=== PATIENT | female | born 1980 | race Caucasian/White ===

== ENCOUNTER → 2023-03-07 13:27 | Outpatient (BNVA) | payer OTHER, SELFPAY | PROVIDERS: Visit Provider Physician Assistant | DX: S56.911A Strain of unspecified muscles, fascia and tendons at forearm level, right arm, initial encounter (principal); S63.8X1A Sprain of other part of right wrist and hand, initial encounter; X50.3XXA Overexertion from repetitive movements, initial encounter | CPT/HCPCS: 73110; 73130; 99202 ==

== ENCOUNTER 2023-04-05 14:00 | Outpatient (RCR) | payer OTHER, BC, SELFPAY ==
--- NOTE | 2023-03-14 11:30 | MHC.OT.EP ---
[address] [phone] Occupational Therapy Plan of Care Patient Name: Hue Romo Date of Evaluation: 03/14/23 Diagnosis: R SPRAIN HAND AND STRAIN FOREARM Pain Location: R VOLAR IF R DORSAL FOREARM 6/10 AT REST 8-10/10 WITH USE Pain Score: 6-10/10 Pain Scale Used: Numeric (0 - 10) Aggravating Factors: ROTATIONAL MOVEMENTS OF FOREARM, WB, GRIPPING Alleviating Factors: USING HEAT > ICE Assessment: MS ROMO IS ABOUT TWO WEEKS S/P R FOREARM STRAIN AND R INDEX FINGER SPRAIN. INJURY OCCURED AFTER A STUDENT PULLED ON HER DOMINANT RUE. SHE C/O PAIN IN HER R DORSAL FOREARM AND R VOLAR MCP OF HER INDEX FINGER AT REST AND WITH FUNCTIONAL USE. A 66% LIMITATION IS REPORTED PER THE QUICK DASH ASSESSMENT. ONGOING SKILLED OT IS WARRANTED TO ADDRESS ROM, STRENGTH, PAIN, ADLs, IADLs AND IMPROVE QOL. Frequency and Duration: The patient will be seen 2X/WEEK FOR 4 WEEKS Short Term Goals: IND HEP IND JT PROTECTION AND ACTIVITY MODIFICATION STRATEGIES IND USE OF HEAT/ ICE REPORT MOSTLY PAINFREE WITH LIGHT ADLs Hr Assistant Goals: QUICK DASH <40% R GRASP >45 POUNDS REPORT <MILD DIFFICULTIES WITH SLEEPING REPORT <2/10 PAIN WITH IADLs Treatment Plan: Therapeutic Exercise Therapeutic Activity Home Exercise Program Splinting Neuro Re-ed Patient Education Desensitization/Sensory Re-ed Edema Control ADL Training Ultrasound NMES Iontophoresis Paraffin Fluidotherapy MHP Cold Packs Joint Mobilization Soft Tissue Mobilization Kinesiotaping Other (see comments) Electronically Signed By: ZANDER LIVE OTR/L Please Sign and return to therapist. Thank you once again for your referral.
--- NOTE | 2023-04-12 14:29 | MHC.OT.DC ---
[address] [phone] F: [phone] Occupational Therapy Discharge Note Patient Name: Hue Romo Provider: Sheron Smith Diagnosis: R SPRAIN HAND AND STRAIN FOREARM Date of Evaluation: 03/14/23 Date of Discharge: 04/12/23 Treatments to Date: 6 Cancellations to Date: 0 No Shows to Date: 3 Discharge Status: Improved Function Independent with HEP Visit Non-compliance Discharge Summary: MS ROMO HAS PROGRESSED WELL WITH HER OT RX SESSIONS. 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 SHE IS IND WITH HER HEP AND READY FOR A TRANSITION TO A HOME BASED HOME EXERCISE PROGRAM. D/C OT SERVICES. Electronically Signed By: ZANDER LIVE OTR/Rodriguez Reviewed/agree with student documentation: N/A Therapist: Please Sign and return to therapist, thank you for your referral.
== END 2023-04-12 14:25 | disposition home or self-care (01) ==
LOC: HO.OT 14:00
PROVIDERS: PCP Physician Assistant Medical; Visit Provider Physician Assistant Medical
DX: S63.92XD Sprain of unspecified part of left wrist and hand, subsequent encounter (principal)
CPT/HCPCS: 97033; 97035; 97110; 97140; 97166

== ENCOUNTER 2023-04-23 15:25 | Outpatient (REF) | payer OTHER, BC, SELFPAY | END 2023-04-23 15:26 | disposition home or self-care (01) | LOC: HO.HOSX 15:25 | PROVIDERS: Visit Provider Orthopaedic Surgery | DX: Z13.89 Encounter for screening for other disorder (principal) ==

== ENCOUNTER 2023-05-28 08:49 | Outpatient (AMB) | payer OTHER, BC, SELFPAY ==
--- NOTE | 2023-05-28 09:03 | MHC.OFFVIS ---
Intake Vital Signs 05/28/23 09:05 Height 5 ft 1 in Weight 105 lb BMI 19.8 Intake Visit Reasons: W/C N/P for multiple traction injury to rt hand Intake Note: Hue Castro 43 yr old who is right hand dominant female presents today for a new patient visit for her W/C injury for multiple traction injury to rt hand from DOI 02/15/23. 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 Pain in mainly in her index MCP and thumb dorsum and volar aspect of hand. Seen with work connection where xrays were taken and was told she has calcification in hand. Currently complaining of soreness and pain in index finger. Its better today especially after doing O.T. Allergies latex Allergy (Severe, Verified 05/28/23 09:06) rash HPI W/C N/P for multiple traction injury to rt hand HPI Details Hue is a 43 year old right hand dominant woman who presents for right hand pain, DOI: 02/15/23. This is a workers comp injury. She works in a school with a special needs student, and says the student dropped to the floor multiple times while holding her hand, as well as grabbed onto her arm,causing her to sprain her hand & wrist. She was seen by work connections who ordered OT. She denies being given a brace by W/C. She has been attending OT, with has been somewhat helpful. She has been doing exercises at home and says her massages her hand & wrist throughout the week, which she finds helpful. She reports pain primarily in the A1 damon area of her right thumb and index fingers, & radial aspect of her wrist, which she says has all improved since her injury. She denies any locking or catching She has been working since her injury. She says she is an avid mountain biker and wants to make sure everything is good before she begins riding in the next few weeks. She is unable to tolerate NSAIDs as she has IBS. [facility] Medical History (Updated 05/28/23 @ 09:25 by Eusebio Geiger) delivery delivered Social History (Updated 05/28/23 @ 09:08 by EBEN Andrade) Patient Tobacco Use Status: Never used Tobacco Current occupational status: employed Current occupation: rt hand/ special integrated circuit fabricator Review of Systems Const All systems reviewed & are unremarkable except as noted in HPI and below Physical Exam Vital Signs: BMI result Body Mass Index 19.8 Const General: cooperative, healthy appearing and no acute distress Orientation/consciousness: patient oriented x3 HEENT Head: Yes normocephalic and Yes atraumatic Eyes EOM: EOMs intact bilaterally Resp Effort & Inspection: normal respiratory effort and able to speak in complete sentences Cardio Jugular venous distension: no JVD Skin General skin exam: turgor normal Rashes: no rashes Neuro General: patient oriented x3 Extrem Other: Evaluation of Right Upper Extremity: The patient is alert, oriented, and in no acute distress Neuro: Median, Ulnar, Radial nerves motor and sensory intact and sensation is normal to the tips of all digits Vascular: Cap refill brisk ROM: She can make a fist and extend all her digits Full wrist ROM Skin: No lacerations or abrasions. General: No Ecchymosis. No Erythema or evidence of infection. Mildly positive Tawana test on the right Negative Tawana test on the left Mild tenderness over the a1 damon of the thumb & index finger, which has been improving No locking or catching No tenderness over the 1st dorsal compartment Main problem following injury was pain going up the radial aspect of her wrist & forearm, which has resolved at this time Radiographs: 3 views of the right hand were taken and viewed by me today in clinic. They show no fractures, dislocations, or arthritic changes. Psych Appearance: grossly normal Affect: normal affect Attitude: cooperative Assessment & Plan Assessment & Plan (1) De Quervain's tenosynovitis, right: Code(s): M65.4 - Radial styloid tenosynovitis [de Quervain] Plan Assessment & Plan: 1. Right De Quervains Mildly positive Tawana test From a work injury, DOI: 02/15/23 This is a workers comp visit 2. A1 damon tenderness in the right index finger and right thumb From a work injury, DOI: 02/15/23 This is a workers comp visit I educated her about de Quervain tenosynovitis and trigger fingers. Both of these conditions appear to be resolving well, and now have only minimal symptoms. She is doing much better since her injury, and has completed a course of OT hand therapy I discussed activity modification, she should limit or avoid activities or positions which cause her pain, such as handshake position. She is able to engage in all other daily activities as normal. I recommend she begin with a short bike ride and see how she feels afterwards before committing to a longer ride. She will follow up prn Scribed for Vania Hines MD by Eusebio Geiger, medical records secretary, on 05/28/23 at 9:25 AM, EST. Orders: Orders XR hand RT min 3V 04/23/23 M79.641 - Pain in right hand XR hand RT min 3V Today M79.641 - Pain in right hand Medications: Discontinued cyclobenzaprine Discontinued Reason: Patient no longer taking 5 mg PO BEDTIME PRN 20 tabs 0RF muscle spasm Coding Level of Care Code New Pt Level 3 (13738) Diagnoses De Quervain's tenosynovitis, right M65.4
[2023-05-28 09:05] VITALS: BMI 19.8
== END 2023-05-28 09:27 | disposition home or self-care (01) ==
PROVIDERS: PCP Physician Assistant Medical; Visit Provider Orthopaedic Surgery
DX: M65.4 Radial styloid tenosynovitis [de Quervain] (principal)
CPT/HCPCS: 99203

== ENCOUNTER 2023-05-28 08:50 | Outpatient (REF) | payer OTHER, BC, SELFPAY ==
--- NOTE | ~2023-05-28 | XR_ITS ---
EXAMINATION: XR HAND, RIGHT CLINICAL INFORMATION: Pain in right hand. Patient states painful second digit into wrist. History of wrist pain. COMPARISON: 03/07/2023. TECHNIQUE: PA, lateral, and oblique views of the right hand. FINDINGS: Mild degenerative changes in the first carpometacarpal joint. Alignment maintained. No displaced fracture appreciated. Mild degenerative changes first metacarpophalangeal joint. Mild cortical concavity along the proximal shaft of the second proximal phalanx redemonstrated. XR/XR hand RT min 3V IMPRESSION: 1. Mild degenerative changes first carpometacarpal joint. 2. Mild cortical concavity along the proximal shaft of the second proximal phalanx redemonstrated.
== END 2023-05-28 08:51 | disposition home or self-care (01) ==
LOC: HO.HOSX 08:50
PROVIDERS: Visit Provider Orthopaedic Surgery
DX: M79.641 Pain in right hand (principal); M65.4 Radial styloid tenosynovitis [de Quervain]
CPT/HCPCS: 73130; 99202

== ENCOUNTER 2023-12-25 10:43 | Outpatient (AMB) | payer OTHER, SELFPAY ==
--- NOTE | 2023-12-25 10:45 | MHC.OFFWIV ---
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 Patient Tobacco Use Status: Never used Tobacco Allergies latex Allergy (Severe, Verified 12/25/23 10:48) rash Do you need a note to return to daycare/school/sports/work: No HPI HPI Comments History of Present Illness Details Patient is a 43-year-old female complaining of a rash on her upper back and her groin in her left arm pit for the last month. She states she has a history of rashes that are secondary to her lacking his certain protein in her skin. Her pie baker gave her clobetasol at that time and she has tried using it on this rash but it did not seem to help. She also use zinc, hydrocortisone and aloe and nothing seems to help. She states it is becoming painful. 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 Review of Systems Const All systems reviewed & are unremarkable except as noted in HPI and below Physical Exam Vital Signs: Last Vital Signs Pulse 77 12/25/23 10:49 BP 122/80 12/25/23 10:49 Pulse Ox 96 12/25/23 10:49 Oxygen Delivery Method Room Air 12/25/23 10:49 Const General: cooperative, healthy appearing, comfortable, no acute distress and well developed Orientation/consciousness: patient oriented x3 Limitations: no limitations Eyes General: appearance normal, both eyes and all related structures Resp Effort & Inspection: normal respiratory effort and able to speak in complete sentences Skin Other: in left axilla, 2cm round cluster of honey-colored crusted lesions, in right groin 1cm x 3cm swath of clusters which are honey-colored crusted lesions; on the upper back she has 4cm x 2cm and 2cm round clusters of honey-colored crusted lesions Neuro General: patient oriented x3 Assessment & Plan Assessment & Plan (1) Impetigo: Code(s): L01.00 - Impetigo, unspecified Plan: Sent Keflex and mupirocin cream because the rash does cover quite a large surface area of her body. Recommended she make an appointment with [facility] for follow-up, just in case her symptoms do not resolve. Plan see above Medications: New mupirocin calcium 2% apply to affected area twice daily 1 appl topical BID 60 grams 0RF cephalexin 500 mg PO Q6H 20 caps 0RF Coding Level of Care Code New Pt Level 4 (48989) Diagnoses Impetigo L01.00
[2023-12-25 10:49] VITALS: BP 122/80; PULSE 77; O2SAT 96
== END 2023-12-25 11:19 | disposition home or self-care (01) ==
PROVIDERS: PCP Physician Assistant Medical; Visit Provider Physician Assistant
DX: L01.00 Impetigo, unspecified (principal)

== ENCOUNTER → 2023-12-25 10:43 | Outpatient (BNVA) | payer OTHER, SELFPAY | PROVIDERS: PCP Physician Assistant Medical; Visit Provider Physician Assistant ==